=== PATIENT | male | born 1935 | race Caucasian/White ===

== ENCOUNTER → 2018-12-29 | Outpatient (CLI) | payer MEDICARE ==
--- NOTE | 2018-12-29 18:08 | RAD ---
RIBS RIGHT AND PA CHEST History: Right rib pain Comparison: June 28, 2006 Findings: Single view of the chest and 4 additional views of the right ribs are submitted. There is no new infiltrate, pleural fluid, pneumothorax. There are again some small granulomas of the right lung base. Cardiac silhouette is stable, within normal limits. No displaced right rib fracture is identified by radiographs. Impression: 1. No acute radiographic abnormality is identified. Electronically signed by: David Garza MD (12/29/2018 6:05 PM) [id number]
== END | disposition home or self-care (01) ==
LOC: PMG 10:12
PROVIDERS: ATTEND Physician Assistant
DX: J84.10 Pulmonary fibrosis, unspecified (principal)
CPT/HCPCS: 71101

== ENCOUNTER → 2019-01-03 | Outpatient (CLI) | payer MEDICARE ==
--- NOTE | 2019-01-03 09:41 | RAD ---
EXAM: CT ABDOMEN/PELVIS WITHOUT CONTRAST. HISTORY: Right upper quadrant pain. TECHNIQUE: Computed tomography of the abdomen and pelvis was performed without intravenous contrast. COMPARISON: None. FINDINGS: Lung windows through the visualized portions of the bases reveal mild atelectasis. There is a small to moderate hiatal hernia. There are atherosclerotic calcifications of the coronary arteries. Bone windows reveal no suspicious lesions. A hypoattenuating lesion with mild overlying capsular retraction measures 2.0 cm in segment 6. Another and segment 2 measures 1.4 cm. Another subcentimeter lesion is seen in segment 4A. A partially calcified mass in the root of the mesentery measures 3.3 x 2.0 cm. There are small surrounding uncalcified lymph nodes. There is no associated obstruction. The gallbladder is surgically absent. The pancreas, adrenal glands, kidneys and spleen are unremarkable without contrast. The appendix is not inflamed. Sigmoid diverticulosis is severe. There is mild diffuse bladder wall thickening. The prostate is mildly enlarged. IMPRESSION: 1. 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 Sclerosing mesenteritis is a second possibility. 2. There are also small hypoattenuating lesions in the liver suggesting metastatic disease. 3. Small to moderate hiatal hernia. 4. Diffuse bladder wall thickening indicates chronic outlet obstruction or inflammation. *One or more of the following individualized dose reduction techniques were utilized for this examination: 1. Automated exposure control. 2. Adjustment of the mA and/or kV according to patient size. 3. Use of iterative reconstruction technique. Electronically signed by: Silverio Major MD (01/03/2019 9:38 AM) [facility]
== END | disposition home or self-care (01) ==
LOC: CT 07:59
PROVIDERS: ATTEND Physician Assistant Medical
DX: K57.30 Diverticulosis of large intestine without perforation or abscess without bleeding (principal); K44.9 Diaphragmatic hernia without obstruction or gangrene; J98.11 Atelectasis; I25.10 Atherosclerotic heart disease of native coronary artery without angina pectoris; N40.0 Benign prostatic hyperplasia without lower urinary tract symptoms; N32.89 Other specified disorders of bladder; K76.9 Liver disease, unspecified; Z90.49 Acquired absence of other specified parts of digestive tract
CPT/HCPCS: 74176

== ENCOUNTER → 2020-02-27 | Outpatient (CLI) | payer MEDICARE ==
--- NOTE | 2020-02-27 09:38 | RAD ---
EXAMINATION: XR SHOULDER_LEFT 2+ VIEWS CLINICAL HISTORY: Left shoulder pain, no known injury TECHNIQUE: XR SHOULDER_LEFT 2+ VIEWS Number of Images/Views: 3 COMPARISON: None FINDINGS: Glenohumeral joint alignment maintained. Minimal acromioclavicular degenerative changes. Chronic reac tive changes in the greater tuberosity. No acute fracture. Vascular calcifications. IMPRESSION: No acute osseous abnormality left shoulder. Electronically signed by: Nixon Estes DO (02/27/2020 9:36 AM) [id number]
== END ==
LOC: PMG 08:57
PROVIDERS: ATTEND Physician Assistant Medical
DX: M19.012 Primary osteoarthritis, left shoulder (principal)
CPT/HCPCS: 73030